=== PATIENT | female | born 1985 | race Two or more races ===

== ENCOUNTER 2021-10-21 12:03 | Inpatient (IN) | payer MEDICAID, OTHER ==
[~2021-10-21] VITALS: Ht 162.6 cm; Wt 84.4 kg
[2021-10-21] MEDS ORDERED: SODIUM CHLORIDE 0.9% 1,000 ML IVB ONE (12:30)
[2021-10-21] MEDS ORDERED: MORPHINE SULFATE 4 MG/ML SYR/VIAL IV ONE ×2 (12:30→20:30)
[2021-10-21] MEDS ORDERED: PANTOPRAZOLE 40 MG/10 ML VIAL INJ IV ONE (12:30)
[2021-10-21] MEDS ORDERED: ONDANSETRON HCL 4 MG/2 ML VIAL IV ONE ×2 (12:30→20:30)
[2021-10-21 13:19] LABS: Basophils # (auto) 0.2 10 ^3/uL (0-0.2); Basophils % (auto) 1.4 % (0.0-2.0); Eosinophils # (auto) 0 10 ^3/uL (0-0.8); Hemoglobin 13.1 g/dL (12.2-16.2); Lymphocytes # (auto) 0.7 10 ^3/uL (0.4-5.4); Lymphocytes % (auto) 4.7 % (10.0-50.0); Mean Corpuscular Hemoglobin 27.6 pg (28.0-32.0); Mean Corpuscular Hgb Conc. 33.6 g/dL (32.0-36.0); Mean Corpuscular Volume 81.9 fL (80.0-100.0); Monocytes # (auto) 0.7 10 ^3/uL (0-1.3); Monocytes % (auto) 4.6 % (0.0-12.0); Neutrophils % (auto) 89.3 % (37.0-80.0); Nucleated Red Blood Cells % 0.1 %; Red Blood Cells 4.76 10^6/uL (4.0-5.20); Red Cell Distribution Width 15.4 % (11.8-14.3); White Blood Cell 14.5 10^3/uL (4.4-10.8)
[2021-10-21 14:30] LABS: Albumin 3.6 g/dL (3.4-5.0); Calcium 8.7 mg/dL (8.5-10.1); Potassium 3.1 mmol/L (3.5-5.1)
[2021-10-21 14:33] LABS: BUN/Creatinine Ratio 9.3; Bilirubin, Total 0.6 mg/dL (0.2-1.0)
[2021-10-21 18:12] LABS: Urine Bacteria FEW /hpf (None Seen); Urine Blood Negative /uL (Negative); Urine Mucus FEW (None Seen); Urine Specific Gravity 1.027 (1.001-1.035); Urine WBC 12 /hpf (0 - 5)
[2021-10-21] MEDS ORDERED: ONDANSETRON HCL 4 MG/2 ML VIAL IV PRN (22:00)
[2021-10-21] MEDS: MORPHINE SULFATE INJECTION 2 MG/ML SYRG IV PRN (22:44)
[2021-10-21] MEDS: SODIUM CHLORIDE 0.9% 1,000 ML IV SCH (23:03)
[2021-10-21] MEDS: POTASSIUM CHL 20MEQ/100ML 100 ML IV SCH (23:03)
[2021-10-21] MEDS: cefTRIAXone 1GM/50ML D5W 50 ML IV SCH (23:18)
[2021-10-22] MEDS: POTASSIUM CHL 20MEQ/100ML 100 ML IV SCH ×3 (01:00→17:20)
[2021-10-22] MEDS: MORPHINE SULFATE INJECTION 2 MG/ML SYRG IV PRN ×4 (05:58→18:07)
[2021-10-22] MEDS: SODIUM CHLORIDE 0.9% 1,000 ML IV SCH ×3 (05:59→21:02)
[2021-10-22 07:02] LABS: Basophils # (auto) 0 10 ^3/uL (0-0.2); Basophils % (auto) 0.1 % (0.0-2.0); Eosinophils # (auto) 0 10 ^3/uL (0-0.8); Hematocrit 37.6 % (36.0-46.0); Hemoglobin 12.6 g/dL (12.2-16.2); Lymphocytes # (auto) 0.8 10 ^3/uL (0.4-5.4); Mean Corpuscular Hemoglobin 27.6 pg (28.0-32.0); Mean Corpuscular Hgb Conc. 33.4 g/dL (32.0-36.0); Mean Corpuscular Volume 82.5 fL (80.0-100.0); Monocytes # (auto) 1.4 10 ^3/uL (0-1.3); Monocytes % (auto) 8.4 % (0.0-12.0); Neutrophils # (auto) 14.5 10 ^3/uL (1.6-8.6); Neutrophils % (auto) 86.5 % (37.0-80.0); Red Blood Cells 4.56 10^6/uL (4.0-5.20); Red Cell Distribution Width 15.6 % (11.8-14.3); White Blood Cell 16.7 10^3/uL (4.4-10.8)
[2021-10-22 07:26] LABS: Albumin 3.2 g/dL (3.4-5.0); BUN/Creatinine Ratio 9.1; Calcium 8.7 mg/dL (8.5-10.1)
[2021-10-22 07:29] LABS: Bilirubin, Total 0.8 mg/dL (0.2-1.0); Total Protein 7.5 g/dL (6.4-8.2)
[2021-10-22 13:00] VITALS: BP 138/84
[2021-10-22 16:46] VITALS: BP 138/90
[2021-10-22] MEDS: cefTRIAXone 1GM/50ML D5W 50 ML IV SCH (21:01)
[2021-10-22 22:00] VITALS: BP 126/73
[2021-10-23] MEDS: SODIUM CHLORIDE 0.9% 1,000 ML IV SCH ×3 (01:18→23:06)
[2021-10-23 05:00] VITALS: BP 143/77
[2021-10-23 08:44] LABS: Basophils # (auto) 0 10 ^3/uL (0-0.2); Basophils % (auto) 0.3 % (0.0-2.0); Eosinophils # (auto) 0 10 ^3/uL (0-0.8); Eosinophils % (auto) 0.1 % (0.0-7.0); Hematocrit 36.6 % (36.0-46.0); Hemoglobin 12.1 g/dL (12.2-16.2); Lymphocytes # (auto) 1.2 10 ^3/uL (0.4-5.4); Lymphocytes % (auto) 7.3 % (10.0-50.0); Mean Corpuscular Hemoglobin 27.7 pg (28.0-32.0); Mean Corpuscular Hgb Conc. 33.1 g/dL (32.0-36.0); Mean Corpuscular Volume 83.5 fL (80.0-100.0); Monocytes % (auto) 6.3 % (0.0-12.0); Neutrophils # (auto) 13.7 10 ^3/uL (1.6-8.6); Red Blood Cells 4.39 10^6/uL (4.0-5.20); Red Cell Distribution Width 15.9 % (11.8-14.3)
[2021-10-23 09:00] VITALS: BP 124/78
[2021-10-23 09:01] LABS: INR 1.09 (0.9-1.15); Partial Thromboplastin Time 29.8 sec (23.6-33.0)
[2021-10-23 09:05] LABS: BUN/Creatinine Ratio 11.1; Calcium 8.2 mg/dL (8.5-10.1); Potassium 3.1 mmol/L (3.5-5.1)
[2021-10-23] MEDS: MORPHINE SULFATE INJECTION 2 MG/ML SYRG IV PRN ×3 (10:20→23:58)
[2021-10-23 13:00] VITALS: BP 133/77
[2021-10-23] MEDS ORDERED: SODIUM CHLORIDE LOCK 10 ML ONE (16:48)
[2021-10-23] MEDS ORDERED: DexAMETHasone SOD PHOS 10MG/1ML VIAL INJ ONE (16:48)
[2021-10-23] MEDS ORDERED: MEPERIDINE HCL (25 MG/ML) 1ML VIAL ONE (16:48)
[2021-10-23] MEDS ORDERED: ROCURONIUM 10MG/ML 10ML VIAL IV ONE (16:48)
[2021-10-23] MEDS ORDERED: NEOSTIGMINE 1 MG/ML INJ (10mg/10ML VIAL) ONE (16:48)
[2021-10-23] MEDS ORDERED: GLYCOPYRROLATE 0.2 MG/ML 1ML VIAL ONE (16:48)
[2021-10-23] MEDS ORDERED: ONDANSETRON HCL 4 MG/2 ML VIAL ONE (16:48)
[2021-10-23] MEDS ORDERED: fentaNYL CITRATE 100 MCG/2 ML VL ONE (16:48)
[2021-10-23 17:00] VITALS: BP 134/75
[2021-10-23] MEDS ORDERED: ceFAZolin 1GM/50ML 50 ML IV ONE ×2 (17:40→17:45)
[2021-10-23] MEDS ORDERED: BUPIVACAINE 0.25% INJ 50ML VIAL ONE (18:10)
[2021-10-23] MEDS ORDERED: METOCLOPRAMIDE HCL 5MG/ml INJ 2ml VIAL IV PRN (18:15)
[2021-10-23] MEDS ORDERED: MORPHINE SULFATE 4 MG/ML SYR/VIAL IV PRN (18:15)
[2021-10-23] MEDS ORDERED: fentaNYL CITRATE 5 ML ONE (19:47)
[2021-10-23] MEDS ORDERED: SUGAMMADEX 200mg/2ml Vial (100MG/ML) IV ONE (21:39)
[2021-10-23] MEDS ORDERED: HYDROmorphone HCL 2 MG/ML VL ONE (21:53)
[2021-10-23] MEDS: HYDROmorphone HCL 2 MG/ML VL IV PRN ×4 (21:55→22:25)
[2021-10-23] MEDS ORDERED: HYDROmorphone HCL 2 MG/ML VL IV ONE (22:30)
[2021-10-23] MEDS: cefTRIAXone 1GM/50ML D5W 50 ML IV SCH (23:06)
[2021-10-23] MEDS: POTASSIUM CHL 20MEQ/100ML 100 ML IV SCH (23:07)
[2021-10-23 23:15] VITALS: BP 148/72
[2021-10-24] MEDS: POTASSIUM CHL 20MEQ/100ML 100 ML IV SCH (01:38)
[2021-10-24] MEDS: SODIUM CHLORIDE 0.9% 1,000 ML IV SCH ×3 (01:39→22:00)
[2021-10-24 04:53] VITALS: BP 140/85
[2021-10-24] MEDS: MORPHINE SULFATE INJECTION 2 MG/ML SYRG IV PRN ×3 (06:22→15:27)
[2021-10-24 06:23] LABS: Basophils # (auto) 0 10 ^3/uL (0-0.2); Eosinophils # (auto) 0 10 ^3/uL (0-0.8); Hematocrit 34.2 % (36.0-46.0); Hemoglobin 11.4 g/dL (12.2-16.2); Lymphocytes # (auto) 0.8 10 ^3/uL (0.4-5.4); Lymphocytes % (auto) 5.3 % (10.0-50.0); Mean Corpuscular Hemoglobin 27.9 pg (28.0-32.0); Mean Corpuscular Hgb Conc. 33.3 g/dL (32.0-36.0); Mean Corpuscular Volume 83.7 fL (80.0-100.0); Monocytes # (auto) 0.5 10 ^3/uL (0-1.3); Monocytes % (auto) 3.1 % (0.0-12.0); Neutrophils # (auto) 13.2 10 ^3/uL (1.6-8.6); Neutrophils % (auto) 91.6 % (37.0-80.0); Red Blood Cells 4.08 10^6/uL (4.0-5.20); Red Cell Distribution Width 16.1 % (11.8-14.3); White Blood Cell 14.4 10^3/uL (4.4-10.8)
[2021-10-24 06:43] LABS: Potassium 3.5 mmol/L (3.5-5.1)
[2021-10-24 06:55] LABS: Albumin 2.4 g/dL (3.4-5.0); BUN/Creatinine Ratio 19.4; Bilirubin, Total 0.3 mg/dL (0.2-1.0); Calcium 7.9 mg/dL (8.5-10.1)
[2021-10-24 09:00] VITALS: BP 131/74
[2021-10-24 13:00] VITALS: BP 123/60
[2021-10-24] MEDS: ENOXAPARIN SOD 40 MG/0.4 ML SYRINGE SC SCH (15:24)
[2021-10-24] MEDS: PANTOPRAZOLE 40 MG/10 ML VIAL INJ IV SCH (15:24)
[2021-10-24 17:00] VITALS: BP 139/66
[2021-10-24 21:25] VITALS: BP 130/69
[2021-10-24] MEDS: cefTRIAXone 1GM/50ML D5W 50 ML IV SCH (22:46)
[2021-10-25 05:00] VITALS: BP 124/76
[2021-10-25] MEDS: SODIUM CHLORIDE 0.9% 1,000 ML IV SCH (05:26)
[2021-10-25 05:33] LABS: Basophils # (auto) 0.1 10 ^3/uL (0-0.2); Basophils % (auto) 0.8 % (0.0-2.0); Eosinophils # (auto) 0 10 ^3/uL (0-0.8); Eosinophils % (auto) 0.3 % (0.0-7.0); Hematocrit 30.6 % (36.0-46.0); Hemoglobin 10.7 g/dL (12.2-16.2); Lymphocytes # (auto) 2.1 10 ^3/uL (0.4-5.4); Lymphocytes % (auto) 19.7 % (10.0-50.0); Mean Corpuscular Hemoglobin 28.7 pg (28.0-32.0); Monocytes # (auto) 0.8 10 ^3/uL (0-1.3); Monocytes % (auto) 7.4 % (0.0-12.0); Neutrophils # (auto) 7.5 10 ^3/uL (1.6-8.6); Neutrophils % (auto) 71.8 % (37.0-80.0); Nucleated Red Blood Cells % 0.1 %; Red Blood Cells 3.73 10^6/uL (4.0-5.20); Red Cell Distribution Width 15.5 % (11.8-14.3); White Blood Cell 10.5 10^3/uL (4.4-10.8)
[2021-10-25 06:07] LABS: Calcium 7.6 mg/dL (8.5-10.1)
[2021-10-25 06:09] LABS: BUN/Creatinine Ratio 21.4
[2021-10-25 06:11] LABS: Potassium 2.9 mmol/L (3.5-5.1)
[2021-10-25] MEDS ORDERED: POTASSIUM CHL 20 Meq TABLET PO ONE ×2 (08:00→11:15)
[2021-10-25 09:00] VITALS: BP 111/59
[2021-10-25] MEDS: ENOXAPARIN SOD 40 MG/0.4 ML SYRINGE SC SCH (10:23)
[2021-10-25] MEDS: PANTOPRAZOLE 40 MG/10 ML VIAL INJ IV SCH (10:23)
[2021-10-25] MEDS ORDERED: POTASSIUM CHL 20MEQ/100ML 100 ML IV ONE (11:15)
[2021-10-25] MEDS ORDERED: POTASSIUM CHLORIDE 20 MEQ in D5W/LACTATED RINGERS 1,000 ML IV SCH (11:15)
[2021-10-25 13:00] VITALS: BP 135/82
[2021-10-25] MEDS: MAGNESIUM SULFATE 1GM/100ML 100 ML IV SCH ×2 (13:00→17:10)
[2021-10-25 14:28] LABS: Alanine Aminotransferase 39 U/L (13-56); Albumin 2.3 g/dL (3.4-5.0); Bilirubin, Direct < 0.1 mg/dL (0-0.2)
[2021-10-25 14:31] LABS: Alkaline Phosphatase 72 U/L (45-117); Aspartate Aminotransferase 32 U/L (15-37); Bilirubin, Total 0.3 mg/dL (0.2-1.0); Total Protein 6.4 g/dL (6.4-8.2)
[2021-10-25] MEDS: D5W/SOD CHL 0.45%/KCL 20MEQ 1,000 ML IV SCH (15:39)
[2021-10-25 16:53] VITALS: BP 130/83
[2021-10-25] MEDS ORDERED: MAGNESIUM SULFATE 1GM/100ML 100 ML IV SCH (17:15)
[2021-10-25 22:00] VITALS: BP 144/85
[2021-10-25] MEDS: cefTRIAXone 1GM/50ML D5W 50 ML IV SCH (22:13)
[2021-10-26] MEDS: D5W/SOD CHL 0.45%/KCL 20MEQ 1,000 ML IV SCH ×3 (04:45→21:06)
[2021-10-26 05:00] VITALS: BP 131/77
[2021-10-26 06:03] LABS: Basophils # (auto) 0 10 ^3/uL (0-0.2); Basophils % (auto) 0.4 % (0.0-2.0); Eosinophils # (auto) 0.2 10 ^3/uL (0-0.8); Eosinophils % (auto) 2.8 % (0.0-7.0); Hematocrit 32.8 % (36.0-46.0); Hemoglobin 11.3 g/dL (12.2-16.2); Lymphocytes % (auto) 25.5 % (10.0-50.0); Mean Corpuscular Hemoglobin 28.1 pg (28.0-32.0); Mean Corpuscular Hgb Conc. 34.5 g/dL (32.0-36.0); Mean Corpuscular Volume 81.5 fL (80.0-100.0); Monocytes # (auto) 0.7 10 ^3/uL (0-1.3); Monocytes % (auto) 8.5 % (0.0-12.0); Neutrophils % (auto) 62.8 % (37.0-80.0); Nucleated Red Blood Cells % 0.2 %; Red Blood Cells 4.02 10^6/uL (4.0-5.20); Red Cell Distribution Width 15.4 % (11.8-14.3)
[2021-10-26 06:15] LABS: Calcium 7.7 mg/dL (8.5-10.1); Magnesium 2.5 mg/dL (1.6-2.6); Potassium 3.3 mmol/L (3.5-5.1)
[2021-10-26 08:44] VITALS: BP 123/62
[2021-10-26] MEDS: ENOXAPARIN SOD 40 MG/0.4 ML SYRINGE SC SCH (10:00)
[2021-10-26] MEDS: PANTOPRAZOLE 40 MG/10 ML VIAL INJ IV SCH (10:00)
[2021-10-26 13:02] VITALS: BP 122/77
[2021-10-26] MEDS ORDERED: POTASSIUM CHL 20 Meq TABLET PO ONE (15:45)
[2021-10-26 17:29] VITALS: BP 104/61
[2021-10-26] MEDS: cefTRIAXone 1GM/50ML D5W 50 ML IV SCH (21:06)
[2021-10-26 22:00] VITALS: BP 127/78
[2021-10-27 05:00] VITALS: BP 120/81
[2021-10-27] MEDS: D5W/SOD CHL 0.45%/KCL 20MEQ 1,000 ML IV SCH (05:00)
[2021-10-27 07:21] LABS: Albumin 2.6 g/dL (3.4-5.0); Calcium 8.4 mg/dL (8.5-10.1); Potassium 3.5 mmol/L (3.5-5.1)
[2021-10-27 07:24] LABS: BUN/Creatinine Ratio 6.4; Bilirubin, Total 0.3 mg/dL (0.2-1.0); Total Protein 7.1 g/dL (6.4-8.2)
[2021-10-27 08:46] VITALS: BP 115/71
[2021-10-27] MEDS: ENOXAPARIN SOD 40 MG/0.4 ML SYRINGE SC SCH (09:51)
[2021-10-27] MEDS: PANTOPRAZOLE 40 MG/10 ML VIAL INJ IV SCH (09:51)
[2021-10-27 12:44] VITALS: BP 115/70
[2021-10-27] MEDS ORDERED: AMOX500T86 PO (13:54)
[2021-10-27] MEDS ORDERED: IBUP600T28 PO (14:16)
[2021-10-27 17:00] VITALS: BP 118/64
== END 2021-10-27 19:20 | disposition home or self-care (01) | DRG 263 ==
LOC: ER 12:03 → TELE 21:58 → TELE-CENTR 10-22 08:48
PROVIDERS: ADMIT Nurse Practitioner Family; ATTEND Nurse Practitioner Family
PROC: 0DNW0ZZ Release Peritoneum, Open Approach (ICD-10-PCS; 2021-10-23)
PROC: 0FT40ZZ Resection of Gallbladder, Open Approach (ICD-10-PCS; principal; 2021-10-23 18:23)
DX: K80.00 Calculus of gallbladder with acute cholecystitis without obstruction (principal); J86.9 Pyothorax without fistula; K65.1 Peritoneal abscess; E87.6 Hypokalemia; K66.0 Peritoneal adhesions (postprocedural) (postinfection); N30.90 Cystitis, unspecified without hematuria; D72.829 Elevated white blood cell count, unspecified; Z20.822 Contact with and (suspected) exposure to COVID-19; K82.A1 Gangrene of gallbladder in cholecystitis; Z56.0 Unemployment, unspecified; Z90.49 Acquired absence of other specified parts of digestive tract
CPT/HCPCS: 36415; 71045; 74181; 76705; 80048; 80053; 80076; 81001; 82150; 83690; 83735; 84702; 85025; 85610; 85730; 86850; 86900; 86901; 87086; 96361; 96374; 96375; C9113; G0378; J0690; J0696; J1100; J2405; J3480; J3490

== ENCOUNTER 2021-11-04 11:55 | Emergency (ER) | payer MEDICAID ==
[~2021-11-04] VITALS: Ht 162.6 cm; Wt 81.6 kg
[~2021-11-04 11:55] MED LIST: AMOX500T86 PO; IBUP600T28 PO
[2021-11-04 13:57] VITALS: BP 133/67
== END 2021-11-04 14:02 | disposition home or self-care (01) ==
LOC: ER 11:55
DX: Z48.02 Encounter for removal of sutures (principal); Z90.49 Acquired absence of other specified parts of digestive tract